=== PATIENT | male | born 1990 | race Caucasian/White ===

== ENCOUNTER 2021-07-29 21:07 | Emergency (ER) | payer SELFPAY ==
--- NOTE | 2021-07-29 22:07 | Emergency Department Report ---
ED General Adult HPI - General Chief complaint: Altered Mental Status Stated complaint: OVERDOSE Time Seen by Provider: 07/29/21 21:41 Source: EMS Mode of arrival: Stretcher Limitations: No Limitations - History of Present Illness Initial comments: 30-year-old male arrives to the emergency department via EMS and reports taking some delta 8 variant Gummies yesterday affect of energy and is elicited utilization and reports becoming hot and very thirsty. Discontinue to today decided come to emergency department to be evaluated. States that he feels much better at this present time reports no chest pain no palpitation, no nausea, no vomiting, no fever, chills, sweats and reports normal memory recall. - Related Data Allergies Allergy/AdvReac Type Severity Reaction Status Date / Time No Known Allergies Allergy Unverified 07/30/21 03:16 ED Review of Systems ROS: Stated complaint: OVERDOSE Other details as noted in HPI Comment: All other systems reviewed and negative ED Past Medical Hx - Past Medical History Previous Medical History?: No - Surgical History Past Surgical History?: No - Social History Smoking Status: Never Smoker Substance Use Type: Marijuana ED Physical Exam - General Limitations: No Limitations General appearance: alert, in no apparent distress, other (Patient appears to be excessively happy but alert and oriented x3 GCS is 15) - Head Head exam: Present: atraumatic, normocephalic - Eye Eye exam: Present: normal appearance - ENT ENT exam: Present: mucous membranes moist - Neck Neck exam: Present: normal inspection - Respiratory Respiratory exam: Present: normal lung sounds bilaterally. Absent: respiratory distress - Cardiovascular Cardiovascular Exam: Present: regular rate, normal rhythm. Absent: systolic murmur, diastolic murmur, rubs, gallop - GI/Abdominal GI/Abdominal exam: Present: soft, normal bowel sounds. Absent: tenderness, guarding, rebound - Rectal Rectal exam: Present: deferred - Extremities Exam Extremities exam: Present: normal inspection - Back Exam Back exam: Present: normal inspection - Neurological Exam Neurological exam: Present: alert, oriented X3, CN II-XII intact, normal gait - Psychiatric Psychiatric exam: Present: normal affect, normal mood. Absent: depressed, agitated, anxious, flat affect, homicidal ideation, suicidal ideation - Skin Skin exam: Present: warm, dry, intact, normal color. Absent: rash ED Course Vital Signs 07/29/21 07/29/2107/29/21 21:22 23:04 23:15 Temperature 98.4 F Pulse Rate 110 H 78 82 Respiratory 16 21 Rate Blood Pressure 122/80 Blood Pressure 160/90 [Left] O2 Sat by Pulse 99 100 99 Oximetry 07/29/21 07/29/21 07/30/21 23:30 23:45 00:00 Temperature Pulse Rate 77 80 76 Respiratory 18 16 16 Rate Blood Pressure 123/77 124/83 129/80 Blood Pressure [Left] O2 Sat by Pulse 99 99 Oximetry 07/30/21 07/30/21 07/30/21 00:06 01:00 02:03 Temperature Pulse Rate 72 79 Respiratory 17 17 Rate Blood Pressure 129/80 138/73 130/82 Blood Pressure [Left] O2 Sat by Pulse 97 95 Oximetry 07/30/21 07/30/21 03:00 04:00 Temperature Pulse Rate Respiratory 15 15 Rate Blood Pressure 130/82 122/78 Blood Pressure [Left] O2 Sat by Pulse 97 96 Oximetry - Consultations Consultation #1: 07/30/21 07:03 Poison control was notified and consulted advises to obtain a lactic acid area observe the patient he has been relatively asymptomatic since the emergency department with deposition of seen to be on the the influence. We will Consultation #2: 07/30/21 07:21 Case discussed with attending Dr. Alicia Doe who is aware of the findings of the lactic acid and the history the patient was hydrated well maintained stability throughout his hospital visit ED Medical Decision Making - Lab Data Result diagrams: 07/29/21 22:27 07/29/21 22:27 Critical care attestation.: If time is entered above; I have spent that time in minutes in the direct care of this critically ill patient, excluding procedure time. ED Disposition Clinical Impression: Illicit drug use, Elevated lactic acid level Disposition: 01 HOME / SELF CARE / HOMELESS Is pt being admited?: No Does the pt Need Aspirin: No Condition: Stable Instructions: Cannabis Use Disorder, Lactic Dehydrogenase Test Referrals: PRIMARY CARE, [Primary Care Provider] - 3-5 Days CHEN LEVI MD [Staff Physician] - 3-5 Days
[2021-07-29 22:47] LABS: Bilirubin,Urine NEG (Negative); Blood,Urine NEG (Negative); Color,Urine Yellow (Yellow); Mucus,Urine FEW /HPF; Protein,Urine <15 mg/dL mg/dL (Negative); RBC,Urine < 1.0 /HPF (0.0-6.0); Urobilinogen,Urine < 2.0 mg/dL (<2.0)
[2021-07-29 22:48] LABS: Basophils % (Auto) 0.4 % (0.0-1.8); Eosinophils # (Auto) 0.1 K/mm3 (0.0-0.4); Eosinophils % (Auto) 0.7 % (0.0-4.3); Hematocrit 41.4 % (35.5-45.6); Hemoglobin 13.9 gm/dl (11.8-15.2); Lymphocytes # (Auto) 1.3 K/mm3 (1.2-5.4); Lymphocytes % (Auto) 11.9 % (13.4-35.0); Mean Corpuscular HGB Conc 34 % (32-34); Mean Corpuscular Volume 83 fl (84-94); Monocytes # (Auto) 0.5 K/mm3 (0.0-0.8); Monocytes % (Auto) 4.8 % (0.0-7.3); Platelet Count 167 K/mm3 (140-440); Red Blood Count 5.02 M/mm3 (3.65-5.03); Red Cell Distribution Width 13.4 % (13.2-15.2)
[2021-07-29 22:57] LABS: Amphetamine Screen,Urine Negative; Benzodiazepines Screen,Urine Negative; Cocaine Screen,Urine Negative; Methadone Screen,Urine Negative; Opiate Screen,Urine Negative
[2021-07-29 23:03] LABS: BUN/Creatinine Ratio 16; Blood Urea Nitrogen 11 mg/dL (9-20); Calcium 8.8 mg/dL (8.4-10.2); Hemolysis Index 7
[2021-07-29 23:09] LABS: Cannabinoid Screen,Urine Positive
[2021-07-30 00:58] LABS: Alanine Aminotransferase 15 units/L (7-56); Albumin 4.8 g/dL (3.9-5)
[2021-07-30 01:06] LABS: Bilirubin,Direct < 0.2 mg/dL (0-0.2)
--- NOTE | 2021-07-30 02:16 | XRay Report ---
CHEST 2 VIEWS INDICATION: fever. COMPARISON: None. FINDINGS: Support devices: None. Heart: Within normal limits. Lungs/Pleura: No acute air space or interstitial disease. No significant pleural effusion. IMPRESSION: No acute findings. Signer Name: Ever Steward MD Signed: 07/30/2021 2:12 AM Workstation Name: [id number]
[2021-07-30] MEDS ORDERED: SODIUM CHLORIDE 0.9% 1000 ML 1,000 ML IV ONE ×2 (03:39→07:07)
[2021-07-30 04:37] VITALS: BP 122/78
== END 2021-07-30 08:00 | disposition home or self-care (01) ==
LOC: ED 21:07
DX: F15.90 Other stimulant use, unspecified, uncomplicated (principal); R74.02 Elevation of levels of lactic acid dehydrogenase [LDH]; F12.90 Cannabis use, unspecified, uncomplicated; Z79.899 Other long term (current) drug therapy
CPT/HCPCS: 36415; 71046; 80048; 80076; 80307; 81001; 82140; 82550; 85025; 96360; 99284; J7030; 80320; Q0162; G0480